=== PATIENT | female | born 1975 | race Caucasian/White ===

== ENCOUNTER 2018-07-10 10:44 | Emergency (ER) | payer OTHER ==
[~2018-07-10] VITALS: Ht 165.1 cm; Wt 62.7 kg
[2018-07-10 10:46] VITALS: BP 113/59; PULSE 75; RESP 19; Ht 165.1 cm; Wt 62.7 kg
[2018-07-10] MEDS ORDERED: IBUP-1542 PO (12:00)
--- NOTE | 2018-07-10 12:03 | ERD ---
ER Documentation Chief Complaint Chief Complaint rikght ankle pain/injury HPI 43-year-old female presents with right foot or ankle pain after twisting it last night. She has bruising and swelling over the base of the right fifth metatarsal area as well as the tarsometatarsal area. She denies any pain in the area of the ankle, knee, and denies any head injury, neck injury, additional injuries or symptoms. ROS All systems reviewed and are negative except as per history of present illness. Medications Home Meds Active Scripts Ibuprofen* (Motrin*) 600 Mg Tab, 600 MG PO Q6, #18 TAB Prov:EDA RABAGO MD 07/10/18 FmHx Family History: No diabetes, No coronary disease, No other Physical Exam Vitals Vital Signs Date Temp Pulse Resp B/P (MAP) Pulse Ox O2 O2 Flow FiO2 Time Delivery Rate 07/10/18 98.6 75 19 113/59 100 10:46 (77) Physical Exam Const: No acute distress Head: Atraumatic Eyes: Normal Conjunctiva ENT: Normal External Ears, Nose and Mouth. Neck: Full range of motion. No meningismus. Resp: Clear to auscultation bilaterally Cardio: Regular rate and rhythm, no murmurs Abd: Soft, non tender, non distended. Normal bowel sounds Skin: No petechiae or rashes Back: No midline or flank tenderness Ext: No cyanosis, or edema. Tenderness, bruising and swelling primarily over the base of the fifth metatarsal area. No appreciable malleolar tenderness, effusion, or tenderness around the ankle joint. Strict range of motion set mildly due to pain. No deficits. Neur: Awake and alert Psych: Normal Mood and Affect Procedures/MDM X-ray right foot 3V Interpreted by me: Bones: No fracture Joints: No dislocation Foreign body: None impression-soft tissue swelling without appreciable fracture dislocation right foot x-ray. Patient is placed in a right lower extremity walker boot and was neurovascular intact after the boot. She is also given crutches with crutch training. Patient was discharged home with recommendations for ice, elevation, primary care follow-up and return precautions. Patient is advised to follow-up with an orthopedist for persistent symptoms despite conservative treatment next week otherwise return sooner for fevers, redness, new worsening symptoms. Departure Diagnosis: Primary Impression: Ankle injury Encounter type: initial encounter Laterality: right Qualified Codes: S99.911A - Unspecified injury of right ankle, initial encounter Condition: Stable Patient Instructions: Sprain Foot Referrals: NO PRIMARY,CARE PHYSICIAN (PCP) Additional Instructions: X-ray read as normal. Recommend ice and elevation at home. Recheck with primary doctor and orthopedist for pain next week. Recheck sooner for fevers, redness, new worsening symptoms. EDA RABAGO MD Jul 10, 2018 12:03
== END 2018-07-10 12:24 | disposition home or self-care (01) ==
LOC: FTE 10:44
DX: S99.911A Unspecified injury of right ankle, initial encounter (principal); X50.1XXA Overexertion from prolonged static or awkward postures, initial encounter; Y92.9 Unspecified place or not applicable
CPT/HCPCS: 73630